=== PATIENT | female | born 1925 | race Two or more races ===

== ENCOUNTER → 2016-05-10 | Outpatient (CLI) | payer MEDICARE, MEDICAID ==
[~2016-05-10] VITALS: Ht 132.1 cm; Wt 55.0 kg
[~2016-05-10] MED LIST: ASPI-1093 PO; CARV25TA32 PO; ISOS30TA6 PO; NITR0.4T27 SL; OMEP20 PO; RALO60 PO; SIMV20TA6 PO
[2016-05-10 14:31] VITALS: BP 84/55
== END | disposition home or self-care (01) ==
LOC: SRCNTR 13:41
PROVIDERS: ATTEND Internal Medicine Cardiovascular Disease
DX: I10 Essential (primary) hypertension (principal); E78.5 Hyperlipidemia, unspecified; I25.10 Atherosclerotic heart disease of native coronary artery without angina pectoris; I35.0 Nonrheumatic aortic (valve) stenosis; Z86.73 Personal history of transient ischemic attack (TIA), and cerebral infarction without residual deficits
CPT/HCPCS: G0463

== ENCOUNTER → 2016-06-30 | Outpatient (CLI) | payer MEDICARE, MEDICAID ==
[~2016-06-30] VITALS: Ht 132.1 cm; Wt 56.0 kg
[2016-06-30 14:27] VITALS: BP 98/57
== END | disposition home or self-care (01) ==
LOC: SRCNTR 14:10
PROVIDERS: ATTEND Internal Medicine Cardiovascular Disease
DX: I10 Essential (primary) hypertension (principal); I25.10 Atherosclerotic heart disease of native coronary artery without angina pectoris; E78.5 Hyperlipidemia, unspecified; I35.0 Nonrheumatic aortic (valve) stenosis; Z86.73 Personal history of transient ischemic attack (TIA), and cerebral infarction without residual deficits
CPT/HCPCS: G0463

== ENCOUNTER → 2016-09-01 | Outpatient (CLI) | payer MEDICARE, MEDICAID ==
[~2016-09-01] VITALS: Ht 132.1 cm; Wt 57.0 kg
[2016-09-01 13:59] VITALS: BP 93/70
== END | disposition home or self-care (01) ==
LOC: SRCNTR 13:45
PROVIDERS: ATTEND Internal Medicine Cardiovascular Disease
DX: I10 Essential (primary) hypertension (principal); I25.10 Atherosclerotic heart disease of native coronary artery without angina pectoris; E78.5 Hyperlipidemia, unspecified; I35.0 Nonrheumatic aortic (valve) stenosis; Z86.73 Personal history of transient ischemic attack (TIA), and cerebral infarction without residual deficits
CPT/HCPCS: G0463

== ENCOUNTER → 2016-11-10 | Outpatient (CLI) | payer MEDICARE, MEDICAID ==
[~2016-11-10] VITALS: Ht 371.1 cm; Wt 57.0 kg
[2016-11-10 14:13] VITALS: BP 130/66
== END | disposition home or self-care (01) ==
LOC: SRCNTR 13:49
PROVIDERS: ATTEND Internal Medicine Cardiovascular Disease
DX: I10 Essential (primary) hypertension (principal); I25.10 Atherosclerotic heart disease of native coronary artery without angina pectoris; E78.5 Hyperlipidemia, unspecified; I35.0 Nonrheumatic aortic (valve) stenosis; Z79.82 Long term (current) use of aspirin; Z86.73 Personal history of transient ischemic attack (TIA), and cerebral infarction without residual deficits
CPT/HCPCS: G0463

== ENCOUNTER → 2016-11-23 | Outpatient (CLI) | payer MEDICARE, MEDICAID ==
[~2016-11-23] MED LIST changes: -ASPI-1093 PO; +ASPI-1188 PO; -NITR0.4T27 SL; +NITR0.4T50 SL
== END | disposition home or self-care (01) ==
LOC: RADPV 14:29
PROVIDERS: ATTEND Internal Medicine Cardiovascular Disease
DX: I08.2 Rheumatic disorders of both aortic and tricuspid valves (principal)
CPT/HCPCS: 93306

== ENCOUNTER 2017-01-24 06:07 | Inpatient (IN) | payer MEDICARE, MEDICAID ==
[~2017-01-24] VITALS: Ht 147.3 cm; Wt 55.3 kg
[2017-01-24] MEDS ORDERED: NITR.4 SL (06:12)
[2017-01-24] MEDS ORDERED: RALO60 PO (06:13)
[2017-01-24] MEDS ORDERED: FUROSEMIDE 40 MG/4 ML VIAL IVP ONE (06:15)
[2017-01-24] MEDS ORDERED: ASPIRIN 81 MG CHEWABLE TABLET PO ONE (06:15)
[2017-01-24] MEDS ORDERED: IPRATROPIUM BROMIDE 0.5 MG/2.5 ML NEB SOLUTION NEB ONE (06:30)
[2017-01-24] MEDS ORDERED: ALBUTEROL SULFATE 2.5 MG/0.5 ML NEB SOLUTION NEB ONE (06:30)
[2017-01-24] MEDS ORDERED: 0.9% SODIUM CHLORIDE 5 ML NEB SOLUTION NEB ONE (06:40)
[2017-01-24 06:50] LABS: ANION GAP 7 mmol/L (8-16); CALCIUM, TOTAL 8.6 mg/dL (8.8-10.5); CARBON DIOXIDE 30 mmol/L (22-29); CHLORIDE 106 mmol/L (98-107); CREATININE 0.82 mg/dL (0.60-1.30); GLOMERULAR FILTR. RATE CALC > 60 mL/min (>60); SODIUM SERUM 143 mmol/L (136-145); UREA NITROGEN, BLOOD 16 mg/dL (7-18)
[2017-01-24 06:58] LABS: ALANINE AMINOTRANSFERASE 16 U/L (12-78); ASPARTATE AMINOTRANSFERASE 16 U/L (15-37); BILIRUBIN,TOTAL 0.3 mg/dL (0.1-1.0); CREATINE KINASE, TOTAL 40 U/L (26-192); TOTAL PROTEIN, SERUM 7.1 g/dL (6.4-8.2)
[2017-01-24 07:21] LABS: B-TYPE NATRIURETIC PEPTIDE 281 pg/mL (0-100)
[2017-01-24 08:08] LABS: APPEARANCE,URINE CLEAR (CLEAR); GLUCOSE, URINE (UA) NEGATIVE (NEGATIVE); KETONES,URINE NEGATIVE (NEGATIVE); LEUKOCYTE ESTERASE ,URINE NEGATIVE (NEGATIVE); OCCULT BLOOD,URINE NEGATIVE (NEGATIVE); PH,URINE 6.5 (5.0-8.0); PROTEIN,URINE POS 1+ (NEGATIVE)
[2017-01-24 08:14] LABS: ADD UA MICROSCOPIC YES
[2017-01-24 08:37] LABS: HYALINE CASTS, URINE 0-2 /LPF (None Seen); RBC,URINE 0-2 /HPF (0-2); SQUAMOUS EPITHELIAL CELL,UR Few /LPF (None Seen); WBC,URINE 0-2 /HPF (0-5)
[2017-01-24 08:39] LABS: BASOPHILS # (AUTO) 0.03 K/uL (0.00-0.20); BASOPHILS % (AUTO) 0.2 % (0.0-2.0); EOSINOPHILS # (AUTO) 0.41 K/uL (0.00-0.70); EOSINOPHILS % (AUTO) 3.73 % (1.0-6.0); HEMATOCRIT 38.2 % (36-46); HEMOGLOBIN 12.7 g/dL (12.0-16.0); LYMPHOCYTES # (AUTO) 1.3 K/uL (1.0-4.8); LYMPHOCYTES % (AUTO) 12.1 % (22.0-44.0); MEAN CORPUSCULAR HEMOGLOBIN 30.2 pg (26.0-34.0); MEAN CORPUSCULAR HGB CONC 33.2 G/dL (31.0-37.0); MEAN CORPUSCULAR VOLUME 91 fL (80-100); MONOCYTES # (AUTO) 0.4 K/uL (0.1-1.0); MONOCYTES % (AUTO) 3.1 % (2.0-9.0); NEUTROPHILS % (AUTO) 80.8 % (40.0-70.0); PLATELET COUNT (AUTO) 214 K/uL (150-450); RED BLOOD CELL COUNT(AUTO) 4.19 MIL/uL (4.00-5.20); RED CELL DISTRIBUTION WIDTH 14.1 % (11.5-14.5); WHITE BLOOD COUNT (AUTO) 11.1 K/uL (4.5-11.0)
[2017-01-24] MEDS ORDERED: 0.9% SODIUM CHLORIDE 10 ML SYRINGE IVP PRN (09:45)
[2017-01-24] MEDS ORDERED: CefTRIAXone 1 GM/DEXTROSE 50 ML IV ONE (09:45)
[2017-01-24] MEDS ORDERED: AZITHROMYCIN 500 MG/NS 250 ML IV ONE (09:45)
[2017-01-24] MEDS ORDERED: ONDANSETRON HCL 4 MG/2 ML VIAL IVP PRN (09:45)
[2017-01-24] MEDS ORDERED: ACETAMINOPHEN 325 MG TABLET PO PRN (09:45)
[2017-01-24 11:19] VITALS: BP 158/78
[2017-01-24] MEDS ORDERED: NITROGLYCERIN 0.4 MG SUBLINGUAL TABLET #25 SL PRN (14:00)
[2017-01-24] MEDS ORDERED: AZITHROMYCIN 250 MG TABLET PO SCH (14:00)
[2017-01-24] MEDS: SIMVASTATIN 20 MG TABLET PO SCH (15:07)
[2017-01-24] MEDS: OMEPRAZOLE 20 MG CAPSULE PO SCH (15:07)
[2017-01-24] MEDS: ASPIRIN 81 MG EC TABLET PO SCH (15:07)
[2017-01-24] MEDS: CARVEDILOL 25 MG TABLET PO SCH ×2 (15:08→20:25)
[2017-01-24] MEDS: ISOSORBIDE MONONITRATE 30 MG ER TABLET PO SCH (15:08)
[2017-01-24] MEDS: RALOXIFENE HCL 60 MG TABLET PO SCH (15:08)
[2017-01-24 15:52] VITALS: BP 138/73
[2017-01-24] MEDS: IPRATROPIUM BROMIDE 0.5 MG/2.5 ML NEB SOLUTION NEB SCH ×2 (19:18→22:59)
[2017-01-24] MEDS: ALBUTEROL SULFATE 2.5 MG/0.5 ML NEB SOLUTION NEB SCH ×2 (19:18→22:59)
[2017-01-24 19:54] VITALS: BP 95/68
[2017-01-24] MEDS: FUROSEMIDE 40 MG/4 ML VIAL IVP SCH (20:25)
[2017-01-24 23:46] VITALS: BP 127/60
[2017-01-25] MEDS: IPRATROPIUM BROMIDE 0.5 MG/2.5 ML NEB SOLUTION NEB SCH ×6 (03:01→23:03)
[2017-01-25] MEDS: ALBUTEROL SULFATE 2.5 MG/0.5 ML NEB SOLUTION NEB SCH ×6 (03:02→23:03)
[2017-01-25 04:28] VITALS: BP 121/58
[2017-01-25 06:17] LABS: BASOPHILS # (AUTO) 0.03 K/uL (0.00-0.20); BASOPHILS % (AUTO) 0.4 % (0.0-2.0); EOSINOPHILS # (AUTO) 0.32 K/uL (0.00-0.70); EOSINOPHILS % (AUTO) 4.29 % (1.0-6.0); HEMATOCRIT 34.2 % (36-46); HEMOGLOBIN 11.3 g/dL (12.0-16.0); LYMPHOCYTES # (AUTO) 1.9 K/uL (1.0-4.8); LYMPHOCYTES % (AUTO) 25.9 % (22.0-44.0); MEAN CORPUSCULAR HEMOGLOBIN 30.3 pg (26.0-34.0); MEAN CORPUSCULAR HGB CONC 33.1 G/dL (31.0-37.0); MEAN CORPUSCULAR VOLUME 92 fL (80-100); MONOCYTES # (AUTO) 0.7 K/uL (0.1-1.0); MONOCYTES % (AUTO) 8.8 % (2.0-9.0); NEUTROPHILS # (AUTO) 4.5 K/uL (1.8-7.7); NEUTROPHILS % (AUTO) 60.7 % (40.0-70.0); PLATELET COUNT (AUTO) 175 K/uL (150-450); RED BLOOD CELL COUNT(AUTO) 3.74 MIL/uL (4.00-5.20); RED CELL DISTRIBUTION WIDTH 14.1 % (11.5-14.5); WHITE BLOOD COUNT (AUTO) 7.4 K/uL (4.5-11.0)
[2017-01-25 06:44] LABS: ALBUMIN 2.7 g/dL (3.4-5.0); BILIRUBIN,TOTAL 0.3 mg/dL (0.1-1.0); CALCIUM, TOTAL 8.6 mg/dL (8.8-10.5); CREATININE 1.04 mg/dL (0.60-1.30); POTASSIUM 3.4 mmol/L (3.5-5.1); TOTAL PROTEIN, SERUM 6.1 g/dL (6.4-8.2)
[2017-01-25 07:04] VITALS: BP 133/92
[2017-01-25] MEDS: SIMVASTATIN 20 MG TABLET PO SCH (08:36)
[2017-01-25] MEDS: ASPIRIN 81 MG EC TABLET PO SCH (08:36)
[2017-01-25] MEDS: FUROSEMIDE 40 MG/4 ML VIAL IVP SCH ×2 (08:36→20:27)
[2017-01-25] MEDS: CARVEDILOL 25 MG TABLET PO SCH ×2 (08:37→20:27)
[2017-01-25] MEDS: RALOXIFENE HCL 60 MG TABLET PO SCH (08:37)
[2017-01-25] MEDS: OMEPRAZOLE 20 MG CAPSULE PO SCH (08:37)
[2017-01-25] MEDS: AZITHROMYCIN 250 MG TABLET PO SCH (08:39)
[2017-01-25] MEDS: ISOSORBIDE MONONITRATE 30 MG ER TABLET PO SCH (09:28)
[2017-01-25] MEDS: CefTRIAXone 1 GM/DEXTROSE 50 ML IV SCH (10:38)
[2017-01-25 10:42] VITALS: BP 116/60
[2017-01-25] MEDS ORDERED: POTASSIUM CHLORIDE 20 MEQ ER TABLET PO PRN (11:15)
[2017-01-25] MEDS ORDERED: POTASSIUM CHL 10 MEQ/WATER 50 ML IV PRN (11:15)
[2017-01-25 15:21] VITALS: BP 118/59
[2017-01-25 20:07] VITALS: BP 116/61
[2017-01-25 23:45] VITALS: BP 118/67
[2017-01-26] MEDS: ALBUTEROL SULFATE 2.5 MG/0.5 ML NEB SOLUTION NEB SCH ×2 (02:48→07:48)
[2017-01-26] MEDS: IPRATROPIUM BROMIDE 0.5 MG/2.5 ML NEB SOLUTION NEB SCH ×2 (02:48→07:48)
[2017-01-26 04:29] VITALS: BP 105/56
[2017-01-26 08:25] VITALS: BP 151/58
[2017-01-26] MEDS: FUROSEMIDE 40 MG/4 ML VIAL IVP SCH (08:25)
[2017-01-26] MEDS: OMEPRAZOLE 20 MG CAPSULE PO SCH (08:26)
[2017-01-26] MEDS: RALOXIFENE HCL 60 MG TABLET PO SCH (08:26)
[2017-01-26] MEDS: SIMVASTATIN 20 MG TABLET PO SCH (08:26)
[2017-01-26] MEDS: AZITHROMYCIN 250 MG TABLET PO SCH (08:26)
[2017-01-26] MEDS: ASPIRIN 81 MG EC TABLET PO SCH (08:26)
[2017-01-26] MEDS: CARVEDILOL 25 MG TABLET PO SCH (08:26)
[2017-01-26] MEDS: ISOSORBIDE MONONITRATE 30 MG ER TABLET PO SCH (08:27)
[2017-01-26] MEDS: CefTRIAXone 1 GM/DEXTROSE 50 ML IV SCH (10:00)
[2017-01-26] MEDS ORDERED: AZIT250T9 PO (10:26)
[2017-01-26] MEDS ORDERED: FURO40 PO (10:28)
== END 2017-01-26 11:25 | disposition home or self-care (01) | DRG 291 ==
LOC: EMS 06:09 → 5N 09:21
PROVIDERS: ADMIT Family Medicine; ATTEND Family Medicine
DX: I11.0 Hypertensive heart disease with heart failure (principal); J18.9 Pneumonia, unspecified organism; J44.0 Chronic obstructive pulmonary disease with (acute) lower respiratory infection; E44.1 Mild protein-calorie malnutrition; I35.0 Nonrheumatic aortic (valve) stenosis; I50.9 Heart failure, unspecified; E78.5 Hyperlipidemia, unspecified; I25.10 Atherosclerotic heart disease of native coronary artery without angina pectoris; J98.01 Acute bronchospasm; K21.9 Gastro-esophageal reflux disease without esophagitis; Z79.82 Long term (current) use of aspirin; Z79.899 Other long term (current) drug therapy; Z86.73 Personal history of transient ischemic attack (TIA), and cerebral infarction without residual deficits; Z87.891 Personal history of nicotine dependence
CPT/HCPCS: 51702; 83735; 84132; 87040; 93005; 94640; 94660; 96365; 96375; 97162; 99291; J0456; J0696; J1940

== ENCOUNTER 2017-02-08 20:23 | Emergency (ER) | payer MEDICARE, MEDICAID ==
[~2017-02-08] VITALS: Ht 147.3 cm; Wt 55.0 kg
[~2017-02-08 20:23] MED LIST changes: +AZIT250T9 PO; +FURO40 PO; +NITR.4 SL; -NITR0.4T50 SL
[2017-02-08 22:13] VITALS: BP 122/75
== END 2017-02-08 22:14 | disposition home or self-care (01) ==
LOC: EMS 20:26
DX: M54.5 Low back pain (principal); E78.00 Pure hypercholesterolemia, unspecified; I10 Essential (primary) hypertension; Z79.82 Long term (current) use of aspirin; Z90.49 Acquired absence of other specified parts of digestive tract; Z87.891 Personal history of nicotine dependence; W01.0XXA Fall on same level from slipping, tripping and stumbling without subsequent striking against object, initial encounter; Y93.89 Activity, other specified; Y92.89 Other specified places as the place of occurrence of the external cause; Y99.8 Other external cause status
CPT/HCPCS: 72100; 99284

== ENCOUNTER 2017-03-29 16:16 | Inpatient (IN) | payer MEDICARE, MEDICAID ==
[~2017-03-29] VITALS: Ht 149.9 cm; Wt 52.0 kg
[~2017-03-29 16:16] MED LIST changes: -AZIT250T9 PO
[2017-03-29] MEDS ORDERED: ACETAMINOPHEN 325 MG TABLET PO ONE (18:00)
[2017-03-29 18:21] LABS: BASOPHILS # (AUTO) 0.04 K/uL (0.00-0.20); BASOPHILS % (AUTO) 0.4 % (0.0-2.0); EOSINOPHILS # (AUTO) 0.11 K/uL (0.00-0.70); EOSINOPHILS % (AUTO) 0.93 % (1.0-6.0); HEMATOCRIT 37.5 % (36-46); HEMOGLOBIN 12.5 g/dL (12.0-16.0); LYMPHOCYTES # (AUTO) 1.2 K/uL (1.0-4.8); LYMPHOCYTES % (AUTO) 10.2 % (22.0-44.0); MEAN CORPUSCULAR HGB CONC 33.4 G/dL (31.0-37.0); MEAN CORPUSCULAR VOLUME 90 fL (80-100); MONOCYTES # (AUTO) 0.8 K/uL (0.1-1.0); NEUTROPHILS # (AUTO) 9.4 K/uL (1.8-7.7); NEUTROPHILS % (AUTO) 81.5 % (40.0-70.0); PLATELET COUNT (AUTO) 248 K/uL (150-450); RED BLOOD CELL COUNT(AUTO) 4.17 MIL/uL (4.00-5.20); RED CELL DISTRIBUTION WIDTH 14.4 % (11.5-14.5)
[2017-03-29 18:25] LABS: CREATININE 1.08 mg/dL (0.60-1.30); POTASSIUM 3.6 mmol/L (3.5-5.1)
[2017-03-29 18:30] LABS: ALBUMIN 3.1 g/dL (3.4-5.0); BILIRUBIN,TOTAL 0.3 mg/dL (0.1-1.0); TOTAL PROTEIN, SERUM 7.1 g/dL (6.4-8.2)
[2017-03-29] MEDS ORDERED: IOVERSOL 320 MG/ML 100 ML VIAL ONE (18:37)
[2017-03-29] MEDS ORDERED: LIDOCAINE HCL 5% TRANSDERMAL PATCH TD ONE (20:00)
[2017-03-29] MEDS ORDERED: FentaNYL CITRATE-PF 100 MCG/2 ML VIAL IVP ONE (21:45)
[2017-03-29] MEDS ORDERED: 0.9% SODIUM CHLORIDE 10 ML SYRINGE IVP PRN (22:45)
[2017-03-29] MEDS ORDERED: NITROGLYCERIN 0.4 MG SUBLINGUAL TABLET #25 SL PRN (22:45)
[2017-03-29 23:20] VITALS: BP 107/61
[2017-03-30] MEDS: CARVEDILOL 25 MG TABLET PO SCH ×3 (00:31→20:15)
[2017-03-30 04:26] VITALS: BP 124/67
[2017-03-30 06:07] LABS: BASOPHILS % (AUTO) 0.3 % (0.0-2.0); EOSINOPHILS % (AUTO) 1.2 % (1.0-6.0); HEMATOCRIT 36.2 % (36-46); LYMPHOCYTES # (AUTO) 1.6 K/uL (1.0-4.8); LYMPHOCYTES % (AUTO) 20.8 % (22.0-44.0); MEAN CORPUSCULAR HGB CONC 33.2 G/dL (31.0-37.0); MEAN CORPUSCULAR VOLUME 90 fL (80-100); MONOCYTES # (AUTO) 0.6 K/uL (0.1-1.0); MONOCYTES % (AUTO) 8.3 % (2.0-9.0); NEUTROPHILS # (AUTO) 5.4 K/uL (1.8-7.7); NEUTROPHILS % (AUTO) 69.4 % (40.0-70.0); PLATELET COUNT (AUTO) 222 K/uL (150-450); RED BLOOD CELL COUNT(AUTO) 4.01 MIL/uL (4.00-5.20); RED CELL DISTRIBUTION WIDTH 14.7 % (11.5-14.5)
[2017-03-30 06:12] LABS: CALCIUM, TOTAL 9.2 mg/dL (8.8-10.5); CREATININE 1.01 mg/dL (0.60-1.30); MAGNESIUM 2.2 mg/dL (1.80-2.40); POTASSIUM 3.5 mmol/L (3.5-5.1)
[2017-03-30 08:17] VITALS: BP 128/77
[2017-03-30] MEDS: OMEPRAZOLE 20 MG CAPSULE PO SCH (08:47)
[2017-03-30] MEDS: ISOSORBIDE MONONITRATE 30 MG ER TABLET PO SCH (08:47)
[2017-03-30] MEDS: ASPIRIN 81 MG EC TABLET PO SCH (08:47)
[2017-03-30] MEDS: SIMVASTATIN 20 MG TABLET PO SCH (08:47)
[2017-03-30 13:04] VITALS: BP 132/78
[2017-03-30 16:55] VITALS: BP 134/79
[2017-03-30 19:28] VITALS: BP 96/63
[2017-03-30] MEDS ORDERED: ACETAMINOPHEN 325 MG TABLET PO PRN (20:15)
[2017-03-31 00:12] VITALS: BP 152/65
[2017-03-31] MEDS: CARVEDILOL 25 MG TABLET PO SCH ×3 (00:16→21:00)
[2017-03-31 06:13] VITALS: BP 119/73
[2017-03-31 06:31] LABS: CHOL/HDL RATIO 3.5 (3.9-5.7); CREATININE 0.89 mg/dL (0.60-1.30); MAGNESIUM 2.3 mg/dL (1.80-2.40); POTASSIUM 3.7 mmol/L (3.5-5.1)
[2017-03-31 07:01] LABS: BASOPHILS # (AUTO) 0.02 K/uL (0.00-0.20); BASOPHILS % (AUTO) 0.3 % (0.0-2.0); EOSINOPHILS % (AUTO) 2.71 % (1.0-6.0); HEMATOCRIT 36.3 % (36-46); HEMOGLOBIN 12.3 g/dL (12.0-16.0); LYMPHOCYTES % (AUTO) 27.3 % (22.0-44.0); MEAN CORPUSCULAR HEMOGLOBIN 29.9 pg (26.0-34.0); MEAN CORPUSCULAR HGB CONC 33.9 G/dL (31.0-37.0); MEAN CORPUSCULAR VOLUME 88 fL (80-100); MONOCYTES # (AUTO) 0.7 K/uL (0.1-1.0); MONOCYTES % (AUTO) 9.3 % (2.0-9.0); NEUTROPHILS # (AUTO) 4.4 K/uL (1.8-7.7); NEUTROPHILS % (AUTO) 60.4 % (40.0-70.0); PLATELET COUNT (AUTO) 209 K/uL (150-450); RED BLOOD CELL COUNT(AUTO) 4.11 MIL/uL (4.00-5.20); RED CELL DISTRIBUTION WIDTH 14.2 % (11.5-14.5)
[2017-03-31 07:11] VITALS: BP 136/71
[2017-03-31] MEDS: SIMVASTATIN 20 MG TABLET PO SCH (08:19)
[2017-03-31] MEDS: ISOSORBIDE MONONITRATE 30 MG ER TABLET PO SCH (08:19)
[2017-03-31] MEDS: ASPIRIN 81 MG EC TABLET PO SCH (08:19)
[2017-03-31] MEDS: OMEPRAZOLE 20 MG CAPSULE PO SCH (08:19)
[2017-03-31 13:22] VITALS: BP 133/70
[2017-03-31 15:57] VITALS: BP 122/75
[2017-03-31 20:33] VITALS: BP 139/84
[2017-04-01 00:12] VITALS: BP 143/85
[2017-04-01 04:30] VITALS: BP 144/81
[2017-04-01] MEDS: ASPIRIN 81 MG EC TABLET PO SCH (08:15)
[2017-04-01] MEDS: OMEPRAZOLE 20 MG CAPSULE PO SCH (08:15)
[2017-04-01] MEDS: SIMVASTATIN 20 MG TABLET PO SCH (08:15)
[2017-04-01] MEDS: CARVEDILOL 25 MG TABLET PO SCH (08:15)
[2017-04-01] MEDS: ISOSORBIDE MONONITRATE 30 MG ER TABLET PO SCH (08:15)
[2017-04-01 08:31] VITALS: BP 151/93
[2017-04-01 11:00] VITALS: BP 104/68
[2017-04-01 19:32] VITALS: BP 127/74
== END 2017-04-01 19:52 | DRG 206 ==
LOC: EMS 16:17 → 6N 22:00
PROVIDERS: ADMIT Family Medicine; ATTEND Family Medicine
DX: S22.39XA Fracture of one rib, unspecified side, initial encounter for closed fracture (principal); E78.00 Pure hypercholesterolemia, unspecified; W19.XXXA Unspecified fall, initial encounter; E78.5 Hyperlipidemia, unspecified; I25.10 Atherosclerotic heart disease of native coronary artery without angina pectoris; I10 Essential (primary) hypertension; M43.12 Spondylolisthesis, cervical region; Y93.01 Activity, walking, marching and hiking; I70.0 Atherosclerosis of aorta; Z87.891 Personal history of nicotine dependence; Z90.49 Acquired absence of other specified parts of digestive tract; Y92.091 Bathroom in other non-institutional residence as the place of occurrence of the external cause; Y99.8 Other external cause status
CPT/HCPCS: 29515; 70450; 71260; 72125; 72193; 74160; 83036; 83735; 96374; 97162; 99285; J3010